=== PATIENT | male | born 1935 | race Caucasian/White ===

== ENCOUNTER 2017-03-10 03:06 | Emergency (ER) | payer MEDICARE, OTHER ==
[2017-03-10 03:17] VITALS: BP 133/77
--- NOTE | 2017-03-10 03:46 | EDM.PDOC ---
ED HPI GI/ABDOMINAL - General Chief Complaint: ENT Problem Stated Complaint: TROUBLE swallowing Time Seen by Provider: 03/10/17 03:14 Source of Information: Reports: Patient, Family (), RN notes reviewed History Limitations: Reports: No limitations - History of Present Illness INITIAL COMMENTS - FREE TEXT/NARRATIVE: The patient states that he ate dinner, consisting of oatmeal and toast, around 16:30, without any problems. He does all his potassium chloride pill, as he usually does, and drink that around that time, as well. Around 21:00, he took his usual nighttime pills, and as he was swallowing them, when he attempts to drink water, he does not vomit, but he does have some regurgitation of liquidy phlegm. The patient states that he has had similar symptoms while eating, over the past 6-7 years. The symptoms usually resolve on their own within about 30 minutes. He states that about 10 days ago he had a similar episode that developed when he was eating dinner at 16:30, and a symptoms that did not resolve themselves until 03:30. The patient states that his last EGD was probably in the . - Related Data Allergies/ADRs: Allergies Allergy/AdvReac Type Severity Reaction Status Date / Time Penicillins Allergy Swelling Verified 03/10/17 03:13 Home Meds: Home Meds Albuterol Sulfate [Albuterol Sulfate HFA] 2 puff IH Q4H PRN 05/09/14 [History] Allopurinol [Zyloprim] 300 mg PO QAM 05/09/14 [History] Arginine [l-Arginine] 500 mg PO QAM 05/09/14 [History] Ascorbic Acid [Vitamin C] 1 tab PO QAM 05/09/14 [History] Atenolol 50 mg PO QAM 05/09/14 [History] Brimonidine [Alphagan P 0.1% Ophth Soln] 1 drop EYEBOTH Q12H 05/09/14 [History] Calcium Carbonate/Vitamin D3 [Calcium 500 + Vit D 200 Tablet] 500 intnl unit PO DAILY 05/09/14 [History] Cholecalciferol (Vitamin D3) [Vitamin D] 1 tab PO QAM 05/09/14 [History] Cinnamon Bark [Cinnamon] 500 mg PO BID 05/09/14 [History] Cyanocobalamin (Vitamin B-12) [Vitamin B-12] 100 mg PO QAM 05/09/14 [History] Cyclobenzaprine [Flexeril] 10 mg PO TID PRN 05/09/14 [History] Flaxseed [Flaxseed Oil] 1 cap PO DAILY 05/09/14 [History] Fluticasone/Salmeterol [Advair 100-50 Diskus] 1 puff INH Q12H 05/09/14 [History] Furosemide [Lasix] 2 tab PO QAM 05/09/14 [History] Furosemide [Lasix] 40 mg PO DAILY 05/09/14 [History] Hydrocodone/Acetaminophen [Hydrocodone-Acetaminophen 5-325] 1 tab PO PRN [History] Krill Oil 300 mg PO DAILY 05/09/14 [History] Lysine [L-Lysine] 500 mg PO BID 05/09/14 [History] Metolazone 0.5 tab PO Q48H 05/09/14 [History] Montelukast [Singulair] 1 tab PO DAILY 05/09/14 [History] Multivitamin [Multiple Vitamins] 1 tab PO QAM 05/09/14 [History] Niacin [Slo-Niacin] 1 tab PO BID 05/09/14 [History] Omeprazole 1 cap PO ACBRK 05/09/14 [History] Potassium Chloride 2 tab PO TID 05/09/14 [History] Psyllium [Metamucil] 1 tbsp PO DAILY 05/09/14 [History] Rosuvastatin Calcium [Crestor] 0.5 mg PO Q48H 05/09/14 [History] Sennosides [Senna] 2 tab PO QAM 05/09/14 [History] Sennosides/Docusate Sodium [Senna-S] 2 tab PO [id number] 05/09/14 [History] Tiotropium [Spiriva] 1 puff INH QAM 05/09/14 [History] Tumeric 1 tab PO QAM 05/09/14 [History] Ubidecarenone [Coenzyme Q10] 1 tab PO QAM 05/09/14 [History] Valsartan [Diovan] 0.5 tab PO BID 05/09/14 [History] traMADol HCl [Ultram] 1 tab PO Q6H PRN 05/09/14 [History] Past Medical History HEENT History: Reports: Impaired vision Other HEENT History: Wears glasses, stop in tear duct Cardiovascular History: Reports: Heart Failure, High cholesterol, Hypertension Respiratory History: Reports: COPD (O2 2L continuously), Sleep apnea (nightly CPAP) Gastrointestinal History: Reports: Colon polyp, Diverticulosis, GERD, PUD Genitourinary History: Reports: BPH, Renal calculus Musculoskeletal History: Reports: Back pain, chronic, Gout, Osteoarthritis Neurological History: Reports: Headaches, chronic Hematologic History: Reports: Anemia - Past Surgical History HEENT Surgical History: Reports: Cataract surgery, Polypectomy GI Surgical History: Reports: Cholecystectomy, Colonoscopy, EGD, Hernia repair/ other (x 3) Neurological Surgical History: Reports: Lumbar spine (x 4) Social & Family History - Tobacco Use Smoking Status *Q: Former Smoker Years of Tobacco use: 35 Packs/Tins Daily: 1.5 Used Tobacco, but Quit: Yes Month Tobacco Last Used: 1988 Second Hand Smoke Exposure: No - Alcohol Use Alcohol Use History: No Days Per Week of Alcohol Use: 0 - Recreational Drug Use Recreational Drug Use: No Drug Use in Last 12 Months: No - Living Situation & Occupation Living situation: Reports: , with spouse Occupation: retired ED ROS GENERAL - Review of Systems Review Of Systems: See Below Constitutional: Reports: no symptoms HEENT: Reports: No symptoms Respiratory: Reports: No Symptoms Cardiovascular: Reports: No symptoms Endocrine: Reports: no symptoms GI/Abdominal: Reports: No symptoms : Reports: no symptoms Musculoskeletal: Reports: no symptoms Skin: Reports: no symptoms Neurological: Reports: No Symptoms Psychiatric: Reports: No symptoms Hematologic/Lymphatic: Reports: no symptoms Immunologic: Reports: no symptoms ED EXAM, GI/ABD - Physical Exam Exam: See Below Exam Limited By: No limitations General Appearance: alert, WD/WN, no apparent distress Eyes: bilateral: normal appearance, EOMI Ears: normal external exam, hearing grossly normal Nose: normal inspection, no blood Throat/Mouth: Normal inspection, Normal lips, Normal voice, No airway compromise Head: atraumatic, normocephalic Neck: normal inspection, full range of motion Respiratory/Chest: no respiratory distress, lungs clear, normal breath sounds, no accessory muscle use Cardiovascular: normal peripheral pulses, regular rate, rhythm, no gallop, no JVD, no murmur, no rub GI/Abdominal: normal bowel sounds, soft, non tender, no organomegaly, no distention, no abnormal bruit, no mass (Male) Exam: Deferred Rectal (Males) Exam: Deferred Back Exam: normal inspection, full range of motion, NT Extremities: normal inspection, normal range of motion, no pedal edema, normal capillary refill Neurological: alert, oriented, normal cognition, no motor/sensory deficits Psychiatric: normal affect Skin Exam: Warm, Dry, Intact, Normal color, No rash Lymphatic: no adenopathy Course - Vital Signs Last Recorded V/S: Last Vital Signs Temp 36.6 C 03/10/17 03:13 Pulse 89 03/10/17 03:13 Resp 18 03/10/17 03:13 BP 133/77 03/10/17 03:13 Pulse Ox 90 L 03/10/17 03:13 - Orders/Labs/Meds Orders: Active Orders 24 hr Category Date Time Status Chest 2V [CR] Stat Exams 03/10/17 03:31 Taken Glucagon,Human Recombinant [GlucaGen] Med 03/10/17 04:01 Once 1 mg IVPUSH ONETIME ONE Medication Orders Glucagon (Glucagen) 1 mg IVPUSH ONETIME ONE Stop: 03/10/17 04:02 Meds: Medications Generic Name Dose Route Start Last Admin Trade Name Mary PRN Reason Stop Dose Admin Glucagon 1 mg 03/10/17 04:01 Glucagen IVPUSH 03/10/17 04:02 ONETIME ONE - Re-Assessments/Exams Free Text/Narrative Re-Assessment/Exam: 03/10/17 04:[address] Lloyd Knutson at 03:57. He would like us to keep the patient in the ED, and she will take the patient to the operating room at 08:00 or 09:00. In the meantime, I will try IV glucagon. 03/10/17 04:10 After returning from radiology, the patient had relief of his symptoms. I had him drink a glass of water, and he is not having any difficulty. I will therefore cancel the glucagon order and discharge the patient home with a referral to Dr. Knutson for outpatient EGD. Departure - Departure Time of Disposition: 04:12 Disposition: Home, Self-Care 01 Condition: good Clinical Impression: Impacted esophageal foreign body Referrals: Carlos Soto MD [Primary Care Provider] - Lloyd Knutson MD [Physician] - Forms: ED Department Discharge Additional Instructions: You were seen in the emergency room for the sensation of pills being stuck in your esophagus. Workup in the ER included a chest x-ray after swallowing barium, which confirmed a lower esophageal obstruction. After you returned from radiology, your symptoms resolved on their own. We recommend that you swallowing your pills one at a time, and make sure that they go down before you swallow the next one. When you eat, take small bites and chew your food well before swallowing. Consider also drinking a sip of water in between swallows. Followup with the Surgeon Dr. Lloyd Knutson at the next available appointment, in order to arrange for an outpatient EGD (scope of your esophagus and stomach). If any other problems, please do not hesitate to return to the ER - My Orders Last 24 Hours: My Active Orders 03/10/17 03:31 Chest 2V [CR] Stat 03/10/17 04:01 Glucagon,Human Recombinant [GlucaGen] 1 mg IVPUSH ONETIME ONE - Assessment/Plan Last 24 Hours: My Active Orders 03/10/17 03:31 Chest 2V [CR] Stat 03/10/17 04:01 Glucagon,Human Recombinant [GlucaGen] 1 mg IVPUSH ONETIME ONE
[2017-03-10] MEDS ORDERED: Glucagon,Human Recombinant 1 MG Vial IVPUSH ONE (04:01)
--- NOTE | 2017-03-10 06:58 | CR ---
Chest: Two views of the chest are obtained. Comparison: No previous chest x-ray. Oral contrast has been given. Small amount of contrast seen within the trachea compatible with aspiration. There is contrast being seen within the stomach. No definite findings of esophageal obstruction are seen. Atelectasis noted within the right lung base which may represent change from aspiration pneumonia. Lungs otherwise are clear. Heart size is normal. Tortuous thoracic aorta is seen. Nodule is identified within the left lung base which is most likely due to to a granuloma. Bony structures are unremarkable for the patient's age. Surgical clips are seen within the upper abdomen. Impression: 1. Contrast within the esophagus with no findings of obstruction. 2. Mild aspiration of contrast is seen. 3. Atelectasis within the right lung base which could possibly represent aspiration pneumonia. 4. Other incidental findings. Diagnostic code #3 MTDD
[2017-03-10] MEDS ORDERED: Barium Sulfate 60% w/v Susp 355 ML Bottle PO ONE (07:04)
== END 2017-03-10 04:24 | disposition home or self-care (01) ==
LOC: JD.ED 03:06
DX: T18.128A Food in esophagus causing other injury, initial encounter (principal); I11.0 Hypertensive heart disease with heart failure; I50.9 Heart failure, unspecified; E78.00 Pure hypercholesterolemia, unspecified; J44.9 Chronic obstructive pulmonary disease, unspecified; K21.9 Gastro-esophageal reflux disease without esophagitis; M19.90 Unspecified osteoarthritis, unspecified site; M10.9 Gout, unspecified; Z88.0 Allergy status to penicillin; Z79.899 Other long term (current) drug therapy; Z86.2 Personal history of diseases of the blood and blood-forming organs and certain disorders involving the immune mechanism; Z98.49 Cataract extraction status, unspecified eye; Z90.49 Acquired absence of other specified parts of digestive tract; Z87.891 Personal history of nicotine dependence
CPT/HCPCS: 71020-26; 74220; 74220-26; 99283; 99284

== ENCOUNTER 2017-03-23 07:23 | Day surgery (SDC) | payer MEDICARE, OTHER ==
[~2017-03-23 07:23] MED LIST: Lactated Ringers 1,000 ML IV SCH; Lidocaine 1%/Sod Bicarbonate in NS 8.4% 1 ML Syringe IV PRN; Sodium Chloride 0.9% 10 ML Syringe FLUSH PRN
[2017-03-23] MEDS ORDERED: Lidocaine 1% 4 ML ONE (07:32)
[2017-03-23] MEDS ORDERED: Propofol 200 MG/20 ML SDV ONE ×2 (07:32→09:34)
--- NOTE | 2017-03-23 07:55 | PCM.PREANE ---
Preanesthetic Assessment - Procedure Proposed Procedure: Egd with Dilation - Anesthesia/Transfusion/Family Hx Anesthesia History: Prior Anesthesia Without Reaction Type of Anesthesia Reaction: Other (see below) (patient often requires o2 after anesthesia for prolonged period, patient on home o2 at 2 lighters ) Family History of Anesthesia Reaction: No Transfusion History: No Prior Transfusion(s) Intubation History: Unknown - Review of Systems General: No Symptoms Pulmonary: Shortness of Breath, Cough Cardiovascular: Dyspnea on Exertion Gastrointestinal: No symptoms Neurological: No Symptoms Other: Reports: None - Physical Assessment NPO Status Date: 03/23/17 NPO Status Time: 17:30 Pulse: 65 O2 Sat by Pulse Oximetry: 97 Respiratory Rate: 16 Blood Pressure: 131/62 Temperature: 97 C Height: 1.83 m Weight: 117.934 kg ASA Class: 3 Mental Status: Alert & Oriented x3 Dentition: Reports: Normal Dentition Thyro-Mental Finger Breadths: 3 Mouth Opening Finger Breadths: 5 ROM/Head Extension: Full (with stiffness) Lungs: Normal respiratory effort, Wheezing Cardiovascular: Regular Rhythm, Bradycardia - Imaging/EKG Impressions: EKG 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 - Allergies Allergies/Adverse Reactions: Allergies Allergy/AdvReac Type Severity Reaction Status Date / Time gabapentin Allergy itchy eyes Verified 03/22/17 15:03 Penicillins Allergy Swelling Verified 03/22/17 15:03 - Blood Blood Available: No - Anesthesia Plan Free Text/Narrative:: Albuterol Inhaler ordered preop Pre-Op Medication Ordered: Beta Marjorie (took at home this am ) Beta Marjorie: Other Med Last Dose Date: 03/23/17 Med Last Dose Time: 06:30 - Acknowledgements Anesthesia Type Planned: MAC Pt an Appropriate Candidate for the Planned Anesthesia: Yes Alternatives and Risks of Anesthesia Discussed w Pt/Guardian: Yes Pt/Guardian Understands and Agrees with Anesthesia Plan: Yes PreAnesthesia Questionnaire HEENT History: Reports: Impaired vision Other HEENT History: Wears glasses, stop in tear duct Cardiovascular History: Reports: Heart Failure, High cholesterol, Hypertension Respiratory History: Reports: COPD, Sleep apnea Other Respiratory History: chronic o2 use at 2 L Gastrointestinal History: Reports: Colon polyp, Diverticulosis, GERD, PUD, Other (see below) Other Gastrointestinal History: dysphagia Genitourinary History: Reports: BPH, Renal calculus [employer] History: Reports: None Musculoskeletal History: Reports: Back pain, chronic, Gout, Osteoarthritis Neurological History: Reports: Headaches, chronic Psychiatric History: Reports: None Endocrine/Metabolic History: Reports: None Hematologic History: Reports: Anemia Other Hematologic History: multiple myeloma Immunologic History: Reports: None Oncologic (Cancer) History: Reports: Other (see below) Other Oncologic History: multiple myeloma Dermatologic History: Reports: None - Past Surgical History Head Surgeries/Procedures: Reports: None HEENT Surgical History: Reports: Cataract surgery, Polypectomy GI Surgical History: Reports: Cholecystectomy, Colonoscopy, EGD, Hernia repair/ other Neurological Surgical History: Reports: Lumbar spine Musculoskeletal Surgical History: Reports: Other (see below) Other Musculoskeletal Surgeries/Procedures:: spine surgery x 4 - SUBSTANCE USE Smoking Status *Q: Former Smoker Tobacco Use Within Last Twelve Months: No Second Hand Smoke Exposure: No Days Per Week of Alcohol Use: 0 Recreational Drug Use History: No - HOME MEDS Home Medications: Home Meds Albuterol Sulfate [Proair Hfa] 1 - 2 puff INH Q4H PRN 03/22/17 [History] Allopurinol [Zyloprim] 300 mg PO DAILY 03/22/17 [History] Aloe Vera/Sodium Chloride [[place] Saline Nasal Gel] 1 applic NASBOTH BID 03/22/17 [ History] Aspirin [[place] Aspirin] 81 mg PO DAILY 03/22/17 [History] Atenolol 50 mg PO DAILY 03/22/17 [History] Brimonidine [Alphagan P 0.15% Ophth Soln] 1 drop EYEBOTH BID 03/22/17 [History] Cyclobenzaprine [Flexeril] 10 mg PO TID PRN 03/22/17 [History] Ferrous Sulfate 325 mg PO Q48H 03/22/17 [History] Finasteride 5 mg PO DAILY 03/22/17 [History] Fluticasone/Salmeterol [Advair 250-50 Diskus] 2 puff INH BID 03/22/17 [History] Furosemide [Furosemide] 80 mg PO BID 03/22/17 [History] Krill/Om-3/DHA/EPA/Phospho/Ast [Krill Oil 1,000 mg Softgel] 1 cap PO Q48H [History] Lactobacillus Combination No.4 [Probiotic] 1 cap PO DAILY 03/22/17 [History] Magnesium Oxide 250 mg PO BEDTIME 03/22/17 [History] Metolazone [Zaroxolyn] 10 mg PO Q48H 03/22/17 [History] Montelukast [Singulair] 10 mg PO BEDTIME 03/22/17 [History] Multivitamin [Multivitamins] 1 tab PO DAILY 03/22/17 [History] Omeprazole Magnesium [Prilosec Otc] 20 mg PO DAILY 03/22/17 [History] Potassium Chloride 80 meq PO TID 03/22/17 [History] Pramipexole Di-HCl [Mirapex] 0.25 mg PO BEDTIME 03/22/17 [History] Rosuvastatin [Crestor] 10 mg PO DAILY 03/22/17 [History] Sennosides [Senna] 8.6 mg PO DAILY 03/22/17 [History] Tamsulosin HCl [Tamsulosin HCl] 0.4 mg PO BID 03/22/17 [History] Tiotropium [Spiriva Handihaler] 1 puff INH DAILY 03/22/17 [History] Ubidecarenone [Coq-10] 100 mg PO DAILY 03/22/17 [History] Valsartan [Diovan] 80 mg PO BID 03/22/17 [History] predniSONE [Prednisone] 5 mg PO DAILY 03/22/17 [History] traMADol [Ultram] 50 mg PO Q6H PRN 03/22/17 [History] - CURRENT (IN HOUSE) MEDS Current Meds: Current Medications Lactated Ringer's (Ringers, Lactated) 1,000 mls @ 125 mls/hr IV ASDIRECTED MEDHAT Stop: 03/23/17 23:00 Lidocaine/Sodium Bicarbonate (Buffered Lidocaine 1% In Ns 8.4%) 0.25 ml IV ONETIME PRN PRN Reason: Prior to IV Start Stop: 03/23/17 18:00 Sodium Chloride (Saline Flush) 10 ml FLUSH ASDIRECTED PRN PRN Reason: Keep Vein Open Stop: 03/23/17 18:00 Discontinued Medications Lidocaine HCl (Xylocaine-Mpf 1%) Confirm Administered Dose 4 mls @ as directed .ROUTE .STK-MED ONE Stop: 03/23/17 07:33 Propofol (Diprivan 20 Ml) Confirm Administered Dose 200 mg .ROUTE .STK-MED ONE Stop: 03/23/17 07:33
[2017-03-23] MEDS ORDERED: Albuterol 0.021% 0.63 MG/3 ML Neb Soln NEB ONE (08:11)
[2017-03-23] MEDS ORDERED: Albuterol 0.083% 2.5 MG/3 ML Neb Soln ONE (08:20)
[2017-03-23] MEDS ORDERED: Albuterol 0.083% 2.5 MG/3 ML Neb Soln NEB ONE (08:30)
--- NOTE | 2017-03-23 09:31 | PCM.OPNOTE ---
- General Post-Op/Procedure Note Date of Surgery/Procedure: 03/23/17 Operative Procedure(s): EGD with bx Pre Op Diagnosis: dysphagia Post-Op Diagnosis: Same Anesthesia Technique: MAC Primary Surgeon: Lloyd Knutson EBL in mLs: 0 Complications: None Condition: Good
--- NOTE | 2017-03-23 09:34 | PCM48HPAN ---
Post Anesthesia Note - EVALUATION WITHIN 48HRS OF ANESTHETIC Vital Signs in Normal Range: Yes Patient Participated in Evaluation: Yes Respiratory Function Stable: Yes Airway Patent: Yes Cardiovascular Function Stable: Yes Hydration Status Stable: Yes Pain Control Satisfactory: Yes Nausea and Vomiting Control Satisfactory: Yes Mental Status Recovered: Yes
[2017-03-23] MEDS ORDERED: Citric Acid/Simethicone/Sodium Bicarbonate Granules 4 GM Packet PO ONE (09:44)
[2017-03-23] MEDS ORDERED: Barium Sulfate 98% Powder for Susp 340 GM Bottle PO ONE (09:44)
[2017-03-23] MEDS ORDERED: Barium Sulfate 60% w/v Susp 355 ML Bottle PO ONE (09:44)
--- NOTE | 2017-03-23 10:21 | CR ---
Esophagram Esophagram study performed utilizing both air and single contrast technique. Findings: Mild narrowing of the distal esophagus is seen. Narrowing is less than 1 cm with 1 cm barium tablet passing readily into the stomach. Tertiary contractions are seen. No stricture or mass effect is otherwise seen within the esophagus. Impression: 1. Mild area of narrowing within the distal esophagus. This causes no significant obstruction into the stomach. 1 cm barium tablet passed readily through this area. Narrowing most likely due to mild achalasia. 2. Tertiary contractions compatible with presbyesophagus. 3. No additional abnormality is appreciated. Diagnostic code #3
[2017-03-23 10:43] VITALS: BP 135/77
--- NOTE | 2017-03-23 15:00 | OR ---
DATE OF OPERATION: 03/23/2017 SURGEON: Lloyd Knutson MD PREOPERATIVE DIAGNOSIS: Dysphagia. POSTOPERATIVE DIAGNOSIS: Dysphagia. OPERATION PERFORMED: Esophagogastroduodenoscopy with biopsy. FINDINGS: Inflammation in the duodenum, which was biopsied. Some edema in the antrum, body, and cardia of the stomach with some dilated veins, and this area was biopsied. The GE junction was at about 42 cm and did not show any erosions. The rest of the esophagus was widely patent. There was no definite dilatation of the veins noted. ANESTHESIA: Procedure done under IV sedation. DESCRIPTION OF PROCEDURE: The patient was taken to the operating room, placed in a supine position, connected to monitoring equipment, and given IV sedation. He was placed in left lateral side with a bite block and video Olympus gastroscope placed in the posterior oropharynx, under direct vision, threaded past the cricopharyngeus, down the esophagus, and into the stomach. The stomach was insufflated. The scope was passed through the pylorus and second portion of the duodenum. Second portion of the duodenum was unremarkable. The duodenal bulb showed some erythema, which was biopsied. Pyloric channel was normal. Antrum showed some petechiae and dilated veins. The mucosa was biopsied. J-maneuver showed some dilated veins around the cardia and prominent rugal folds. Scope withdrawn in the GE junction, which was unremarkable. Small sliding hiatal hernia noted, the GE junction about 42 cm. Rest of the esophagus was viewed as scope was withdrawn and was unremarkable. The patient tolerated the procedure and sent to recovery room in a stable condition. Specimen sent to pathology in a labeled container. The patient will be followed up in the clinic. ESTIMATED BLOOD LOSS: MMODAL /[id number]
== END 2017-03-23 10:25 | disposition home or self-care (01) ==
LOC: JD.SDS 07:23
PROVIDERS: ATTEND Surgery
DX: K29.50 Unspecified chronic gastritis without bleeding (principal); K29.80 Duodenitis without bleeding; Z88.0 Allergy status to penicillin; Z88.8 Allergy status to other drugs, medicaments and biological substances; K44.9 Diaphragmatic hernia without obstruction or gangrene; J44.9 Chronic obstructive pulmonary disease, unspecified; Z90.49 Acquired absence of other specified parts of digestive tract; Z98.890 Other specified postprocedural states; Z79.899 Other long term (current) drug therapy; Z79.82 Long term (current) use of aspirin; Z87.891 Personal history of nicotine dependence
CPT/HCPCS: 43239; 74220; 88305; 94664; J7120; J2704

== ENCOUNTER 2017-06-11 21:39 | Emergency (ER) | payer MEDICARE, OTHER ==
[2017-06-11 21:49] VITALS: BP 153/79
--- NOTE | 2017-06-11 22:03 | EDM.PDOC ---
ED HPI GENERAL MEDICAL PROBLEM - General Chief Complaint: Gastrointestinal Problem Stated Complaint: UNABLE TO GO TO THE BATHROOM Time Seen by Provider: 06/11/17 21:58 Source of Information: Reports: Patient, Family (spouse) History Limitations: Reports: No Limitations - History of Present Illness INITIAL COMMENTS - FREE TEXT/NARRATIVE: 81-year-old male presents the ED with abdominal bloating discomfort and mild rectal pressure discomfort. He states he has a history of chronic constipation and has not had a bowel movement for last 2 and half days. Is in spite of taking vegetable oil laxatives 2 tabs twice daily Metamucil twice daily and fiber med twice daily. He has a history of chronic constipation since having 4 back surgeries. In the first part of April he was diagnosed with multiple myeloma and therefore has started chemotherapy. He states as soon as he started high-dose steroids he developed increasing problems with constipation. At present he doesn't have much in the way of abdominal cramps. No rectal bleeding. No nausea or vomiting. Still able to eat 3 meals a day. Onset: Gradual Onset Date: 06/08/17 Duration: Day(s):, Getting Worse Location: Reports: Other (No bowel movement for the last 2 and half days.) Quality: Reports: Pressure, Same as Previous Episode Severity: Mild Worsens with: Reports: None Context: Reports: Other (Has developed increased problems with bowel movements since starting chemotherapy for multiple myeloma in the last 6 weeks). 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 below) (None.) - Related Data Allergies Allergy/AdvReac Type Severity Reaction Status Date / Time gabapentin Allergy itchy eyes Verified 06/11/17 21:48 Penicillins Allergy Swelling Verified 06/11/17 21:48 Home Meds: Home Meds Albuterol Sulfate [Proair Hfa] 1 - 2 puff INH Q4H PRN 03/22/17 [History] Allopurinol [Zyloprim] 300 mg PO DAILY 03/22/17 [History] Aspirin [[place] Aspirin] 81 mg PO DAILY 03/22/17 [History] Atenolol 50 mg PO DAILY 03/22/17 [History] Brimonidine [Alphagan P 0.15% Ophth Soln] 1 drop EYEBOTH BID 03/22/17 [History] Cyclobenzaprine [Flexeril] 10 mg PO TID PRN 03/22/17 [History] Finasteride 5 mg PO DAILY 03/22/17 [History] Fluticasone/Salmeterol [Advair 250-50 Diskus] 2 puff INH BID 03/22/17 [History] Furosemide [Furosemide] 80 mg PO BID 03/22/17 [History] Krill/Om-3/DHA/EPA/Phospho/Ast [Krill Oil 1,000 mg Softgel] 1 cap PO Q48H [History] Lactobacillus Combination No.4 [Probiotic] 1 cap PO DAILY 03/22/17 [History] Magnesium Oxide 250 mg PO BEDTIME 03/22/17 [History] Metolazone [Zaroxolyn] 2.5 mg PO Q48H 03/22/17 [History] Multivitamin [Multivitamins] 1 tab PO DAILY 03/22/17 [History] Omeprazole Magnesium [Prilosec Otc] 20 mg PO DAILY 03/22/17 [History] Potassium Chloride 60 meq PO TID 03/22/17 [History] Pramipexole Di-HCl [Mirapex] 0.25 mg PO BEDTIME 03/22/17 [History] Rosuvastatin [Crestor] 5 mg PO ASDIRECTED 03/22/17 [History] Sennosides [Senna] 8.6 mg PO DAILY 03/22/17 [History] Tamsulosin HCl [Tamsulosin HCl] 0.4 mg PO BID 03/22/17 [History] Tiotropium [Spiriva Handihaler] 1 puff INH DAILY 03/22/17 [History] Ubidecarenone [Coq-10] 100 mg PO DAILY 03/22/17 [History] Valsartan [Diovan] 80 mg PO BID 03/22/17 [History] predniSONE [Prednisone] 5 mg PO DAILY 03/22/17 [History] traMADol [Ultram] 50 mg PO Q6H PRN 03/22/17 [History] Calcium Carbonate/Vitamin D3 [Calcium 500 + Vit D 400] 1 each PO DAILY 06/11/17 [History] Dexamethasone 4 mg PO DAILY 06/11/17 [History] Gabapentin [Neurontin] 300 mg PO DAILY 06/11/17 [History] Lenalidomide [Revlimid] 25 mg PO DAILY 06/11/17 [History] Loratadine [Claritin] 10 mg PO ASDIRECTED 06/11/17 [History] Montelukast Sodium [Singulair] 5 mg PO DAILY 06/11/17 [History] Polyethylene Glycol 3350 [MiraLAX] 17 gm PO BID #1 cont 06/11/17 [Rx] Past Medical History HEENT History: Reports: Impaired Vision Other HEENT History: Wears glasses, stop in tear duct Cardiovascular History: Reports: Heart Failure, High Cholesterol, Hypertension Respiratory History: Reports: COPD, Sleep Apnea Other Respiratory History: chronic o2 use at 2 L Gastrointestinal History: Reports: Colon Polyp, Diverticulosis, GERD, PUD, Other (See Below) Other Gastrointestinal History: dysphagia Genitourinary History: Reports: BPH, Renal Calculus 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 Is currently receiving chemotherapy for this. Dermatologic History: Reports: None - Past Surgical History HEENT Surgical History: Reports: Cataract Surgery, Polypectomy GI Surgical History: Reports: Cholecystectomy, Colonoscopy, EGD, Hernia Repair/ Other Neurological Surgical History: Reports: Lumbar Spine Musculoskeletal Surgical History: Reports: Other (See Below) Other Musculoskeletal Surgeries/Procedures:: four back surgeries Oncologic Surgical History: Reports: Bone Marrow Aspiration Social & Family History - Tobacco Use Smoking Status *Q: Former Smoker Years of Tobacco use: 35 Packs/Tins Daily: 1.5 Used Tobacco, but Quit: Yes Month Tobacco Last Used: 1988 Second Hand Smoke Exposure: No - Caffeine Use Caffeine Use: Reports: Coffee, Tea - Alcohol Use Days Per Week of Alcohol Use: 0 - Recreational Drug Use Recreational Drug Use: No Drug Use in Last 12 Months: No - Living Situation & Occupation Living situation: Reports: , with Spouse Occupation: Retired ED ROS GENERAL - Review of Systems Review Of Systems: See Below Constitutional: Reports: Malaise, Weakness, Fatigue, Decreased Appetite (Mildly. ). Denies: Fever, Chills, Weight Loss HEENT: Reports: Glasses (Is not wearing his hearing aids at present.), Hearing Loss Respiratory: Reports: Shortness of Breath. Denies: Wheezing, Cough, Sputum, Hemoptysis, Other Cardiovascular: Reports: Blood Pressure Problem, Dyspnea on Exertion (Both lower legs chronically), Edema. Denies: Chest Pain, Claudication, Lightheadedness, Orthopnea (Usually has high blood pressure), Palpitations, PND Endocrine: Reports: Fatigue GI/Abdominal: Reports: Abdominal Pain (Morbid abdominal pressure discomfort feels bloated. No cramping), Constipation, Decreased Appetite, Flatus. Denies: Hematemesis, Hematochezia, Melena, Mucous in Stool, Nausea, Stool Incontinence, Vomiting, Other : Reports: Frequency, Other (Has benign prostatic hypertrophy.) Musculoskeletal: Reports: Back Pain (Chronically) Skin: Reports: Other Neurological: Reports: No Symptoms Psychiatric: Reports: No Symptoms Hematologic/Lymphatic: Reports: No Symptoms Immunologic: Reports: No Symptoms ED EXAM, GI/ABD - Physical Exam Exam: See Below Exam Limited By: No Limitations General Appearance: Alert, WD/WN, No Apparent Distress, Other (He is very hard of hearing. Have to speak quite loudly and he looks to his to interpret me) Eyes: Bilateral: Normal Appearance Head: Atraumatic, Normocephalic Neck: Normal Inspection, Supple, Non-Tender, Full Range of Motion. No: Carotid Bruit, Lymphadenopathy (L), Lymphadenopathy (R) Respiratory/Chest: No Respiratory Distress, Lungs Clear, Normal Breath Sounds ( Mildly decreased in both bases posteriorly.), Chest Non-Tender, Decreased Breath Sounds Cardiovascular: Regular Rate, Rhythm, No Gallop, No Murmur, No Rub. No: No Edema GI/Abdominal: Normal Bowel Sounds, Non-Tender, Tympanic Bowel Sounds (Mild tympany upper abdomen.), Other (Abdomen is firm to palpation. He is obese making it difficult to palpate solid organs. He's had multiple surgeries for umbilical hernia wrapping. Still has a small umbilical hernia present. Indicates mesh graft is present across his abdomen.) (Male) Exam: No Hernia Back Exam: Normal Inspection, Full Range of Motion, Other (Midline lumbar surgical scar evident.) Extremities: Other (Venous stasis dermatitis both lower extremities. 2+ pitting edema to mid tib-fib bilaterally.) Neurological: Alert, Oriented, CN II-XII Intact, Normal Cognition Psychiatric: Normal Affect, Normal Mood Skin Exam: Warm, Dry, Intact, Other (Bilateral venous stasis dermatitis in lower extremities to distal tib-fib.) Course - Vital Signs Last Recorded V/S: Last Vital Signs Temp 36.5 C 06/11/17 21:46 Pulse 76 06/11/17 21:46 Resp 18 06/11/17 21:46 BP 153/79 H 06/11/17 21:46 Pulse Ox 96 06/11/17 21:46 - Orders/Labs/Meds Orders: Active Orders 24 hr Category Date Time Status Enema [RC] ASDIRECTED Care 06/11/17 22:13 Active Abdomen 1V Flat [CR] Stat Exams 06/11/17 21:58 Taken Meds: Medications Discontinued Medications Generic Name Dose Route Start Last Admin Trade Name Mary PRN Reason Stop Dose Admin Magnesium Citrate 300 ml 06/11/17 22:13 06/11/17 22:51 Citrate Of Magnesia PO 06/11/17 22:14 300 ml ONETIME ONE Administration - Radiology Interpretation Free Text/Narrative:: 81-year-old male presents to the ED with no bowel movement for last 2-1/2 days. Feels distended in his abdomen in spite of taking a large amount of laxatives daily. His constipation problem is worsened since started chemotherapy for multiple myeloma for the last few weeks. Decreased since starting steroids. I believe this was dexamethasone. Benign abdominal examination and is in no significant discomfort. Plan :KUB will be performed to establish the extent of the constipation. - Re-Assessments/Exams Free Text/Narrative Re-Assessment/Exam: 06/11/17 22:12 KUB reveals essentially left hemicolon constipation. There is very little stool on the right side of the hemicolon and mid transverse colon. He is already tried several suppositories and Fleet enema today. Minimal results. Will try a soapsuds enema here. And also oral magnesium citrate 10 ounces by mouth. 06/11/17 23:06 patient did have a fair amount of diarrhea water return with some formed elements. He feels somewhat better. Still going to give him the 10 ounces of Citroma orally. Advised him to switch over to MiraLAX 17 g twice daily while he is on the chemotherapy and stop the Metamucil. I think this will be more successful in controlling the constipation problems long-term. Departure - Departure Time of Disposition: 23:07 Disposition: Home, Self-Care 01 Condition: Fair Clinical Impression: Constipation by delayed colonic transit - Discharge Information Prescriptions: Polyethylene Glycol 3350 [MiraLAX] 17 gm PO BID #1 cont Instructions: Constipation, Adult Referrals: Carlos Soto MD [Primary Care Provider] - Forms: ED Department Discharge Additional Instructions: Evaluation in the emergency room tonight in regards to abdominal bloating and no bowel movement for the last 2 and half to 3 days. Chronic constipation issues worsened by recent chemotherapy x-ray of the abdomen did reveal extensive stool throughout the left hemicolon. The rectal vault itself was fairly empty. You're therefore given a soapsuds enema which produced a lot of dark brown water suggesting some stool release or softening. You're also given Citroma 10 ounces by mouth which will work overnight to hopefully get her bowels moving again. I would suggest stopping the Metamucil and switching to MiraLAX powder 17 g scoop twice daily well on the chemotherapy as I feel this will be more successful in controlling her constipation long-term. Noted takes 3 days for the MiraLAX to start to work well. Turned to the hospital for any further problems occur over the weekend. - My Orders Last 24 Hours: My Active Orders 06/11/17 21:58 Abdomen 1V Flat [CR] Stat 06/11/17 22:13 Enema [RC] ASDIRECTED - Assessment/Plan Last 24 Hours: My Active Orders 06/11/17 21:58 Abdomen 1V Flat [CR] Stat 06/11/17 22:13 Enema [RC] ASDIRECTED
[2017-06-11] MEDS ORDERED: Magnesium Citrate Solution 296 ML Bottle PO ONE (22:13)
--- NOTE | 2017-06-13 11:22 | CR ---
Abdomen: Supine view of the abdomen was obtained. Comparison: No previous abdominal x-ray. Surgical clips are noted from prior cholecystectomy. Mild vascular calcification is seen. Scoliosis and degenerative change is present within the spine. Bowel gas pattern appears within normal limits. Bony structures are somewhat osteopenic. Impression: 1. Incidental findings. Nothing acute is identified. Diagnostic code #2
== END 2017-06-11 23:30 | disposition home or self-care (01) ==
LOC: JD.ED 21:39
DX: K59.01 Slow transit constipation (principal); I11.0 Hypertensive heart disease with heart failure; I50.9 Heart failure, unspecified; G47.30 Sleep apnea, unspecified; J44.9 Chronic obstructive pulmonary disease, unspecified; K21.9 Gastro-esophageal reflux disease without esophagitis; Z90.49 Acquired absence of other specified parts of digestive tract; Z98.49 Cataract extraction status, unspecified eye; Z98.890 Other specified postprocedural states; Z87.891 Personal history of nicotine dependence; Z79.82 Long term (current) use of aspirin; Z79.899 Other long term (current) drug therapy; Z88.0 Allergy status to penicillin; Z88.8 Allergy status to other drugs, medicaments and biological substances
CPT/HCPCS: 74000; 99283; A9270

== ENCOUNTER 2018-02-04 08:34 | Emergency (ER) | payer OTHER, MEDICARE ==
[2018-02-04 08:44] VITALS: BP 114/64
--- NOTE | 2018-02-04 08:52 | EDM.PDOC ---
ED HPI GENERAL MEDICAL PROBLEM - General Chief Complaint: ENT Problem Stated Complaint: NOSE BLEED Time Seen by Provider: 02/04/18 08:52 Source of Information: Reports: Patient History Limitations: Reports: No Limitations - History of Present Illness INITIAL COMMENTS - FREE TEXT/NARRATIVE: 82-year-old male presents to the ED with an acute onset of left nasal hemorrhage starting about 0730 hrs. this morning. He's had no problems with nosebleeds as of late. Is on a baby aspirin daily. Apparently he is receiving chemotherapy as well for multiple myeloma since April 29 last year. Denies any nasal trauma in the last several days. He has blown out several clots in the nose has slowed up in terms of bleeding at this time. It was running down his throat and out the other side of his nares as well. Onset: Today Onset Date: 02/04/18 Onset Time: 07:30 Duration: Hour(s): Location: Reports: Face (Left nasal hemorrhage.) Quality: Reports: Other Severity: Moderate (No pain) Improves with: Reports: None Context: Reports: Other. 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 below) (None.) - Related Data Allergies Allergy/AdvReac Type Severity Reaction Status Date / Time gabapentin Allergy itchy eyes Verified 06/11/17 21:48 Penicillins Allergy Swelling Verified 06/11/17 21:48 Home Meds: Home Meds Albuterol Sulfate [Proair Hfa] 1 - 2 puff INH Q4H PRN 03/22/17 [History] Allopurinol [Zyloprim] 300 mg PO DAILY 03/22/17 [History] Aspirin [[place] Aspirin] 81 mg PO DAILY 03/22/17 [History] Atenolol 50 mg PO DAILY 03/22/17 [History] Brimonidine [Alphagan P 0.15% Ophth Soln] 1 drop EYEBOTH BID 03/22/17 [History] Cyclobenzaprine [Flexeril] 10 mg PO TID PRN 03/22/17 [History] Finasteride 5 mg PO DAILY 03/22/17 [History] Fluticasone/Salmeterol [Advair 250-50 Diskus] 2 puff INH BID 03/22/17 [History] Furosemide [Furosemide] 80 mg PO BID 03/22/17 [History] Krill/Om-3/DHA/EPA/Phospho/Ast [Krill Oil 1,000 mg Softgel] 1 cap PO Q48H [History] Lactobacillus Combination No.4 [Probiotic] 1 cap PO DAILY 03/22/17 [History] Magnesium Oxide 250 mg PO BEDTIME 03/22/17 [History] Metolazone [Zaroxolyn] 2.5 mg PO Q48H 03/22/17 [History] Multivitamin [Multivitamins] 1 tab PO DAILY 03/22/17 [History] Omeprazole Magnesium [Prilosec Otc] 20 mg PO DAILY 03/22/17 [History] Potassium Chloride 60 meq PO TID 03/22/17 [History] Pramipexole Di-HCl [Mirapex] 0.25 mg PO BEDTIME 03/22/17 [History] Rosuvastatin [Crestor] 5 mg PO ASDIRECTED 03/22/17 [History] Sennosides [Senna] 8.6 mg PO DAILY 03/22/17 [History] Tamsulosin HCl [Tamsulosin HCl] 0.4 mg PO BID 03/22/17 [History] Tiotropium [Spiriva Handihaler] 1 puff INH DAILY 03/22/17 [History] Ubidecarenone [Coq-10] 100 mg PO DAILY 03/22/17 [History] Valsartan [Diovan] 80 mg PO BID 03/22/17 [History] predniSONE [Prednisone] 5 mg PO DAILY 03/22/17 [History] traMADol [Ultram] 50 mg PO Q6H PRN 03/22/17 [History] Calcium Carbonate/Vitamin D3 [Calcium 500 + Vit D 400] 1 each PO DAILY 06/11/17 [History] Dexamethasone 4 mg PO DAILY 06/11/17 [History] Gabapentin [Neurontin] 300 mg PO DAILY 06/11/17 [History] Lenalidomide [Revlimid] 25 mg PO DAILY 06/11/17 [History] Loratadine [Claritin] 10 mg PO ASDIRECTED 06/11/17 [History] Montelukast Sodium [Singulair] 5 mg PO DAILY 06/11/17 [History] Polyethylene Glycol 3350 [MiraLAX] 17 gm PO BID #1 cont 06/11/17 [Rx] Bacitracin/Polymyxin B [Polysporin Oint] 28.35 gm .XX DAILY #1 tube 02/04/18 [Rx ] Past Medical History HEENT History: Reports: Impaired Vision Other HEENT History: Wears glasses, stop in tear duct Cardiovascular History: Reports: Heart Failure, High Cholesterol, Hypertension Respiratory History: Reports: COPD, Sleep Apnea Other Respiratory History: chronic o2 use at 2 L Gastrointestinal History: Reports: Colon Polyp, Diverticulosis, GERD, PUD, Other (See Below) Other Gastrointestinal History: dysphagia Genitourinary History: Reports: BPH, Renal Calculus 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 Is currently receiving chemotherapy for this. Dermatologic History: Reports: None - Past Surgical History HEENT Surgical History: Reports: Cataract Surgery, Polypectomy GI Surgical History: Reports: Cholecystectomy, Colonoscopy, EGD, Hernia Repair/ Other Neurological Surgical History: Reports: Lumbar Spine Musculoskeletal Surgical History: Reports: Other (See Below) Other Musculoskeletal Surgeries/Procedures:: four back surgeries Oncologic Surgical History: Reports: Bone Marrow Aspiration Social & Family History - Tobacco Use Smoking Status *Q: Former Smoker Years of Tobacco use: 35 Packs/Tins Daily: 1.5 Used Tobacco, but Quit: Yes Month Tobacco Last Used: 1988 Second Hand Smoke Exposure: No - Caffeine Use Caffeine Use: Reports: Coffee, Tea - Alcohol Use Days Per Week of Alcohol Use: 0 - Recreational Drug Use Recreational Drug Use: No Drug Use in Last 12 Months: No - Living Situation & Occupation Living situation: Reports: , with Spouse Occupation: Retired ED ROS ENT - Review of Systems Review Of Systems: See Below Constitutional: Reports: Malaise, Weakness, Fatigue. Denies: Fever, Chills, Weight Loss HEENT: Reports: Nosebleed Respiratory: Reports: Shortness of Breath (Left nasal hemorrhage see history of present illness) Cardiovascular: Reports: No Symptoms Endocrine: Reports: No Symptoms GI/Abdominal: Reports: No Symptoms : Reports: Frequency (Nocturia 3.), Other Musculoskeletal: Reports: Back Pain Skin: Reports: Pallor Neurological: Reports: No Symptoms Psychiatric: Reports: No Symptoms Hematologic/Lymphatic: Reports: No Symptoms ED EXAM, ENT - Physical Exam Exam: See Below Exam Limited By: No Limitations General Appearance: Alert, WD/WN, Anxious, Mild Distress Eye Exam: Bilateral Eye: Normal Inspection Nose: Other (On inspection of the nares the right nares appears to be clear. There is a large amount of clot and the oropharynx is coated with clots on the buccal mucosa and posterior oropharynx. On inspection of the left naris appears to be bleeding from the posterior) Mouth/Throat: Other (As above or fractures coated with blood with a thick maroon clot hanging down from the nasopharynx) Head: Atraumatic, Normocephalic Neck: Normal Inspection, Supple, Non-Tender, Full Range of Motion. No: Lymphadenopathy (L), Lymphadenopathy (R) Respiratory/Chest: Respiratory Distress (Mild tachypnea at rest. ), Decreased Breath Sounds (Decreased air entry lower lung rey posteriorly) Cardiovascular: Regular Rate, Rhythm, No Edema, No Gallop Extremities: Normal Inspection, Normal Range of Motion, Non-Tender, No Pedal Edema Neurological: Alert, Oriented, CN II-XII Intact, Normal Cognition Psychiatric: Normal Affect, Normal Mood Skin: Warm, Dry, Intact, Normal Color, No Rash Course - Vital Signs Last Recorded V/S: Last Vital Signs Temp 36.2 C 02/04/18 08:41 Pulse 72 02/04/18 08:41 Resp 20 02/04/18 08:41 BP 114/64 02/04/18 08:41 Pulse Ox 93 L 02/04/18 08:41 - Orders/Labs/Meds Meds: Medications Discontinued Medications Generic Name Dose Route Start Last Admin Trade Name Freq PRN Reason Stop Dose Admin Cocaine HCl 4 ml 02/04/18 09:18 02/04/18 09:27 Cocaine Hcl TOP 02/04/18 09:19 4 ml ONETIME ONE Administration Oxymetazoline HCl 15 ml 02/04/18 09:18 02/04/18 09:27 Afrin Original 0.05% Nasal [place] DELFINA 02/04/18 09:19 1 spray ONETIME ONE Administration - Radiology Interpretation Free Text/Narrative:: 82-year-old male presents the ED with acute left-sided nosebleed. Started about 0730 hrs. this morning shortly after he got up. This persisted since that time. Of note the patient is receiving chemotherapy for multiple myeloma. He's had no previous similar problems with nose bleeding. Initial inspection does not show the site of bleeding per se. Appears to be almost posterior lateral. There is a large amount of blood in the posterior pharynx however. Plan I'm going to pack his left naris with combination of cocaine Afrin-soaked nasal pack. I will leave this there for 20 minutes and then remove it and have a better look at his nose. - Re-Assessments/Exams Free Text/Narrative Re-Assessment/Exam: 02/04/18 09:32: Left naris packed with 1/2 inch tube gauze soaked in Afrin and 4 mils of cocaine. Nasal pack placed. This will stay for 20 minutes and then I will remove it and see if we can identify source of bleeding for possible cauterization. 02/04/18 10:00: Packing removed from the left naris. Minimal blood noted on the posterior aspect of the pack. An area of suspect bleeding was appreciated from the left lateral nasal alar wall. Not from the septum this area was cauterized with silver nitrate in 2 spots. I will review him in 10 minutes time. Departure - Departure Time of Disposition: :18 Disposition: Home, Self-Care 01 Condition: Fair Clinical Impression: Epistaxis - Discharge Information Prescriptions: Bacitracin/Polymyxin B [Polysporin Oint] 28.35 gm .XX DAILY #1 tube Referrals: Carlos Soto MD [Primary Care Provider] - Forms: ED Department Discharge Additional Instructions: Evaluation the emergency room this morning in regards to development of sudden left-sided nosebleed this morning. Bleeding appears to be coming from the mid nose on the outside alae. Nose is packed with Afrin and cocaine to bring the bleeding under control and then the area was cauterized with silver nitrate . No acute of the snuffles for the next hour or so as this is a side effect of the silver nitrate. Am of this discharge may be pinkish in color as there is some blood still in the floor of the nose. Of course return to the ED if you have any further significant nose bleeding. Suggest treatment at bedtime with Polysporin ointment to both the nasal septum and the outside of the nose placed by Q-tip every night at bedtime for one week.
[2018-02-04] MEDS ORDERED: Oxymetazoline 0.05% Nasal Spray 15 ML Bottle NAS ONE (09:18)
== END 2018-02-04 10:30 | disposition home or self-care (01) ==
LOC: JD.ED 08:34
DX: R04.0 Epistaxis (principal); C90.00 Multiple myeloma not having achieved remission; K21.9 Gastro-esophageal reflux disease without esophagitis; I11.0 Hypertensive heart disease with heart failure; I50.9 Heart failure, unspecified; J44.9 Chronic obstructive pulmonary disease, unspecified; Z87.891 Personal history of nicotine dependence; Z99.81 Dependence on supplemental oxygen; Z79.82 Long term (current) use of aspirin; Z79.899 Other long term (current) drug therapy; Z88.0 Allergy status to penicillin; Z88.8 Allergy status to other drugs, medicaments and biological substances
CPT/HCPCS: 30905; 99283; A9270

== ENCOUNTER 2018-03-02 16:11 | Emergency (ER) | payer OTHER, MEDICARE ==
[2018-03-02 16:27] VITALS: BP 153/61
[2018-03-02] MEDS ORDERED: Sodium Chloride 0.9% 10 ML Syringe FLUSH PRN (16:46)
--- NOTE | 2018-03-02 17:12 | CR ---
Chest: Portable view of the chest was obtained. Comparison: Prior chest x-ray of 03/10/17. Heart is enlarged. Upper mediastinum is within normal limits. Minimal right basilar atelectasis is seen. Lungs otherwise are clear. No acute pulmonary vascular congestion is seen. Bony structures are grossly intact. Impression: 1. Mild cardiomegaly. Other incidental findings. Nothing acute is seen. Diagnostic code #2
[2018-03-02] MEDS ORDERED: Albuterol/Ipratropium 3.0-0.5 MG/3 ML Neb Soln NEB ONE (18:15)
[2018-03-02] MEDS ORDERED: Doxycycline 100 MG Cap PO ONE (18:15)
--- NOTE | 2018-03-02 18:24 | EDM.PDOC ---
ED HPI GENERAL MEDICAL PROBLEM - General Chief Complaint: Respiratory Problem Stated Complaint: TEMP/COUGHING Time Seen by Provider: 03/02/18 16:26 Source of Information: Reports: Patient, Family, RN Notes Reviewed - History of Present Illness INITIAL COMMENTS - FREE TEXT/NARRATIVE: 82-year-old male comes in with onset of cough yesterday and then fever chills today. His states that he had some shaking chills this past morning and then again this afternoon. Cough has been primarily nonproductive. He does get somewhat short of breath when coughing. He does have history of COPD, does use oxygen on a regular basis. He has had some mild nasal and sinus congestion and also mild scratchy throat. No headache. No abdominal pain nausea or vomiting. Lower Back Pain Score (Numeric/FACES): 5 - Related Data Allergies Allergy/AdvReac Type Severity Reaction Status Date / Time gabapentin Allergy itchy eyes Verified 03/02/18 16:28 Penicillins Allergy Swelling Verified 03/02/18 16:28 Home Meds: Home Meds Albuterol Sulfate [Proair Hfa] 1 - 2 puff INH Q4H PRN 03/22/17 [History] Allopurinol [Zyloprim] 300 mg PO DAILY 03/22/17 [History] Aspirin [[place] Aspirin] 81 mg PO DAILY 03/22/17 [History] Atenolol 50 mg PO DAILY 03/22/17 [History] Brimonidine [Alphagan P 0.15% Ophth Soln] 1 drop EYEBOTH BID 03/22/17 [History] Cyclobenzaprine [Flexeril] 10 mg PO TID PRN 03/22/17 [History] Finasteride 5 mg PO DAILY 03/22/17 [History] Fluticasone/Salmeterol [Advair 250-50 Diskus] 2 puff INH BID 03/22/17 [History] Furosemide 80 mg PO BID 03/22/17 [History] Krill/Om-3/DHA/EPA/Phospho/Ast [Krill Oil 1,000 mg Softgel] 1 cap PO Q48H [History] Lactobacillus Combination No.4 [Probiotic] 1 cap PO DAILY 03/22/17 [History] Magnesium Oxide 250 mg PO BEDTIME 03/22/17 [History] Metolazone [Zaroxolyn] 2.5 mg PO Q48H 03/22/17 [History] Multivitamin [Multivitamins] 1 tab PO DAILY 03/22/17 [History] Omeprazole Magnesium [Prilosec Otc] 20 mg PO DAILY 03/22/17 [History] Potassium Chloride 60 meq PO TID 03/22/17 [History] Pramipexole Di-HCl [Mirapex] 0.25 mg PO BEDTIME 03/22/17 [History] Rosuvastatin [Crestor] 5 mg PO ASDIRECTED 03/22/17 [History] Sennosides [Senna] 8.6 mg PO DAILY 03/22/17 [History] Tamsulosin HCl 0.4 mg PO BID 03/22/17 [History] Tiotropium [Spiriva Handihaler] 1 puff INH DAILY 03/22/17 [History] Ubidecarenone [Coq-10] 100 mg PO DAILY 03/22/17 [History] Valsartan [Diovan] 80 mg PO BID 03/22/17 [History] predniSONE [Prednisone] 5 mg PO DAILY 03/22/17 [History] traMADol [Ultram] 50 mg PO Q6H PRN 03/22/17 [History] Calcium Carbonate/Vitamin D3 [Calcium 500 + Vit D 400] 1 each PO DAILY 06/11/17 [History] Dexamethasone 4 mg PO DAILY 06/11/17 [History] Gabapentin [Neurontin] 300 mg PO DAILY 06/11/17 [History] Lenalidomide [Revlimid] 25 mg PO DAILY 06/11/17 [History] Loratadine [Claritin] 10 mg PO ASDIRECTED 06/11/17 [History] Montelukast Sodium [Singulair] 5 mg PO DAILY 06/11/17 [History] Polyethylene Glycol 3350 [MiraLAX] 17 gm PO BID #1 cont 06/11/17 [Rx] Bacitracin/Polymyxin B [Polysporin Oint] 28.35 gm .XX DAILY #1 tube 02/04/18 [Rx ] Oseltamivir [Tamiflu] 75 mg PO BID #8 cap 03/02/18 [Rx] Past Medical History HEENT History: Reports: Impaired Vision Other HEENT History: Wears glasses, stop in tear duct Cardiovascular History: Reports: Heart Failure, High Cholesterol, Hypertension Respiratory History: Reports: COPD, Sleep Apnea Other Respiratory History: chronic o2 use at 2 L Gastrointestinal History: Reports: Colon Polyp, Diverticulosis, GERD, PUD, Other (See Below) Other Gastrointestinal History: dysphagia Genitourinary History: Reports: BPH, Renal Calculus 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 Is currently receiving chemotherapy for this. Dermatologic History: Reports: None - Past Surgical History Head Surgeries/Procedures: Reports: None HEENT Surgical History: Reports: Cataract Surgery, Polypectomy GI Surgical History: Reports: Cholecystectomy, Colonoscopy, EGD, Hernia Repair/ Other Neurological Surgical History: Reports: Lumbar Spine Musculoskeletal Surgical History: Reports: Other (See Below) Other Musculoskeletal Surgeries/Procedures:: four back surgeries Oncologic Surgical History: Reports: Bone Marrow Aspiration Social & Family History - Family History Family Medical History: Noncontributory - Tobacco Use Smoking Status *Q: Former Smoker Years of Tobacco use: 35 Packs/Tins Daily: 1.5 Used Tobacco, but Quit: Yes Month/Year Tobacco Last Used: 1988 Second Hand Smoke Exposure: No - Caffeine Use Caffeine Use: Reports: Coffee, Tea - Alcohol Use Days Per Week of Alcohol Use: 0 - Recreational Drug Use Recreational Drug Use: No Drug Use in Last 12 Months: No - Living Situation & Occupation Living situation: Reports: , with Spouse Occupation: Retired ED ROS GENERAL - Review of Systems Review Of Systems: See Below Constitutional: Reports: Fever (Today), Chills (Today) HEENT: Reports: Rhinitis (Mild), Throat Pain (Mild) Respiratory: Reports: Shortness of Breath (Mild chronically not much worse than usual), Cough. Denies: Pleuritic Chest Pain, Sputum Cardiovascular: Denies: Chest Pain Endocrine: Reports: Fatigue GI/Abdominal: Denies: Abdominal Pain, Nausea, Vomiting Musculoskeletal: Reports: Other (Some generalized achiness) Skin: Denies: Rash Neurological: Denies: Headache, Trouble Speaking ED EXAM, GENERAL - Physical Exam Exam: See Below General Appearance: Alert, No Apparent Distress Eye Exam: Bilateral Eye: PERRL Nose: Normal Inspection Throat/Mouth: Normal Inspection Head: Atraumatic Neck: Supple, Full Range of Motion. No: Lymphadenopathy (L), Lymphadenopathy (R ) Respiratory/Chest: Respiratory Distress (Mild tachypnea). No: Rhonchi, Wheezing Cardiovascular: Regular Rate, Rhythm GI/Abdominal: Soft, Non-Tender. No: Guarding Back Exam: No: CVA Tenderness (L), CVA Tenderness (R) Extremities: Normal Inspection, Pedal Edema. No: Leg Pain (Mild bilateral), Increased Warmth, Redness Neurological: Alert, Oriented, No Motor/Sensory Deficits Skin Exam: Warm, Dry, Normal Color Course - Vital Signs Last Recorded V/S: Last Vital Signs Temp 99.6 F 03/02/18 16:21 Pulse 75 03/02/18 16:21 Resp 28 H 03/02/18 16:21 BP 153/61 H 03/02/18 16:21 Pulse Ox 94 L 03/02/18 18:38 - Orders/Labs/Meds Orders: Active Orders 24 hr Category Date Time Status Oxygen Therapy [RC] ASDIRECTED Care 03/02/18 16:47 Active Peripheral IV Care [RC] . DIRECTED Care 03/02/18 16:48 Active RT Aerosol Therapy [RC] ASDIRECTED Care 03/02/18 18:15 Active CULTURE BLOOD [BC] Stat Lab 03/02/18 17:07 Received CULTURE BLOOD [BC] Stat Lab 03/02/18 17:17 Received Sodium Chloride 0.9% [Saline Flush] Med 03/02/18 16:46 Active 10 ml FLUSH ASDIRECTED PRN Peripheral IV Insertion Adult [OM.PC] Stat Oth 03/02/18 16:47 Ordered Medication Orders Sodium Chloride (Saline Flush) 10 ml FLUSH ASDIRECTED PRN PRN Reason: Keep Vein Open Last Admin: 03/02/18 17:11 Dose: 10 ml Labs: Laboratory Tests 03/02/18 03/02/18 03/02/18 Range/Units 17:07 17:07 17:07 WBC 2.44 L* (4.23-9.07) K/mm3 RBC 2.96 L (4.63-6.08) M/mm3 Hgb 9.8 L (13.7-17.5) gm/L Hct 30.5 L (40.1-51.0) % MCV 103.0 H (79.0-92.2) fl MCH 33.1 H (25.7-32.2) pg MCHC 32.1 L (32.2-35.5) g/dl RDW Std Deviation 57.5 H (35.1-43.9) fL Plt Count 69 L (163-337) K/mm3 MPV 9.5 (9.4-12.3) fl Neut % (Auto) 70.6 H (34.0-67.9) % Lymph % (Auto) 13.9 L (21.8-53.1) % Zavala % (Auto) 13.5 H (5.3-12.2) % Eos % (Auto) 1.2 (0.8-7.0) Baso % (Auto) 0.4 (0.1-1.2) % Neut # (Auto) 1.72 L (1.78-5.38) K/mm3 Lymph # (Auto) 0.34 L (1.32-3.57) K/mm3 Zavala # (Auto) 0.33 (0.30-0.82) K/mm3 Eos # (Auto) 0.03 L (0.04-0.54) K/mm3 Baso # (Auto) 0.01 (0.01-0.08) K/mm3 Manual Slide Review Abnormal smear Sodium 144 (136-145) mEq/L Potassium 4.4 (3.5-5.1) mEq/L Chloride 106 (98-107) mEq/L Carbon Dioxide 28 (21-32) mEq/L Anion Gap 14.4 (5-15) BUN 21 H (7-18) mg/dL Creatinine 1.9 H (0.7-1.3) mg/dL Est Cr Clr Drug Dosing 31.77 mL/min Estimated GFR (MDRD) 34 (>60) mL/min BUN/Creatinine Ratio 11.1 L (14-18) Glucose 109 (83-115) mg/dL Calcium 8.3 L (8.5-10.1) mg/dL Total Bilirubin 0.7 (0.2-1.0) mg/dL AST 15 (15-37) U/L ALT 17 (16-63) U/L Alkaline Phosphatase 67 (46-116) U/L C-Reactive Protein 9.6 H* (<1.0) mg/dL Total Protein 5.7 L (6.4-8.2) g/dl Albumin 2.7 L (3.4-5.0) g/dl Globulin 3.0 gm/dL Albumin/Globulin Ratio 0.9 L (1-2) Meds: Medications Generic Name Dose Route Start Last Admin Trade Name Freq PRN Reason Stop Dose Admin Sodium Chloride 10 ml 03/02/18 16:46 03/02/18 17:11 Saline Flush FLUSH 10 ml ASDIRECTED PRN Administration Keep Vein Open Discontinued Medications Generic Name Dose Route Start Last Admin Trade Name Freq PRN Reason Stop Dose Admin Albuterol/Ipratropium 3 ml 03/02/18 18:15 03/02/18 18:38 Duoneb 3.0-0.5 Mg/3 Ml NEB 03/02/18 18:16 3 ml ONETIME ONE Administration Doxycycline Hyclate 100 mg 03/02/18 18:15 03/02/18 18:22 Vibramycin PO 03/02/18 18:16 100 mg ONETIME ONE Administration Oseltamivir Phosphate 75 mg 03/02/18 19:00 Tamiflu PO 03/02/18 19:01 ONETIME ONE - Re-Assessments/Exams Free Text/Narrative Re-Assessment/Exam: 03/02/18 19:08 Chest x-ray was negative for pneumonia or other apparent acute abnormality. White blood count low, suspect low on basis of his chronic disease. Influenza screen did come back positive for influenza B. His states that he did get a flu shot last fall which now would be quite a long time ago. With his symptoms just having started yesterday we will start him on Tamiflu 75 mg twice a day. He does feel up to going home at this time. Sats of been good while here in the ED. Discharge instructions as documented Departure - Departure Time of Disposition: 18:18 Disposition: Home, Self-Care 01 Condition: Fair Clinical Impression: Influenza - Discharge Information Prescriptions: Oseltamivir [Tamiflu] 75 mg PO BID #8 cap Instructions: Acute Bronchitis, Adult, [id number] Referrals: Carlos Soto MD [Primary Care Provider] - Forms: ED Department Discharge Additional Instructions: Tamiflu 75 mg twice daily for 4 days, continue inhalers and other medications as previously prescribed. Drink plenty of water to maintain hydration. Tylenol every 6-8 hours if needed for any further fever. Follow-up with Dr. Vazquez early next week for recheck, call tomorrow morning for appointment, first available appointment next week. Return to ED if it is not working out at home, if symptoms worsening in any way. - My Orders Last 24 Hours: My Active Orders 03/02/18 16:46 Sodium Chloride 0.9% [Saline Flush] 10 ml FLUSH ASDIRECTED PRN 03/02/18 16:47 Oxygen Therapy [RC] ASDIRECTED Peripheral IV Insertion Adult [OM.PC] Stat 03/02/18 16:48 Peripheral IV Care [RC] . DIRECTED 03/02/18 17:07 CULTURE BLOOD [BC] Stat 03/02/18 17:17 CULTURE BLOOD [BC] Stat 03/02/18 18:15 RT Aerosol Therapy [RC] ASDIRECTED - Assessment/Plan Last 24 Hours: My Active Orders 03/02/18 16:46 Sodium Chloride 0.9% [Saline Flush] 10 ml FLUSH ASDIRECTED PRN 03/02/18 16:47 Oxygen Therapy [RC] ASDIRECTED Peripheral IV Insertion Adult [OM.PC] Stat 03/02/18 16:48 Peripheral IV Care [RC] . DIRECTED 03/02/18 17:07 CULTURE BLOOD [BC] Stat 03/02/18 17:17 CULTURE BLOOD [BC] Stat 03/02/18 18:15 RT Aerosol Therapy [RC] ASDIRECTED
[2018-03-02] MEDS ORDERED: Oseltamivir 75 MG Cap PO ONE (19:00)
== END 2018-03-02 19:10 | disposition home or self-care (01) ==
LOC: JD.ED 16:11
DX: J10.1 Influenza due to other identified influenza virus with other respiratory manifestations (principal); I11.0 Hypertensive heart disease with heart failure; I50.9 Heart failure, unspecified; J44.9 Chronic obstructive pulmonary disease, unspecified; E78.00 Pure hypercholesterolemia, unspecified; Z87.891 Personal history of nicotine dependence; Z79.899 Other long term (current) drug therapy; Z88.0 Allergy status to penicillin; Z88.8 Allergy status to other drugs, medicaments and biological substances; Z79.82 Long term (current) use of aspirin
CPT/HCPCS: 36415; 71045; 80053; 85025; 86140; 87040; 87804; 94640; 99284; A9270; J7050; 99283

== ENCOUNTER 2018-04-19 20:07 | Emergency (ER) | payer MEDICARE, OTHER ==
[2018-04-19 20:32] VITALS: BP 116/59
--- NOTE | 2018-04-19 20:53 | EDM.PDOC ---
ED HPI GENERAL MEDICAL PROBLEM - General Chief Complaint: Abdominal Pain Stated Complaint: SHARP PAIN LEFT SIDE Time Seen by Provider: 04/19/18 20:53 - History of Present Illness INITIAL COMMENTS - FREE TEXT/NARRATIVE: 82-year-old male presents emergency room with left-sided lower abdominal pain. This pain really has been getting worse through the course today the patient was seen at the [facility] in [place] he had a couple appointments there he took several stool softeners before he went there. He has not had any luck with this the pain is managed to get worse he has not had any associated nausea vomiting with this no diarrhea. He has no burning or frequency with urination. No fevers or chills. Patient has frequent problems with constipation Left Abdomen Pain Score (Numeric/FACES): 5 - Related Data Allergies Allergy/AdvReac Type Severity Reaction Status Date / Time gabapentin Allergy itchy eyes Verified 03/02/18 16:28 Penicillins Allergy Swelling Verified 03/02/18 16:28 Home Meds: Home Meds Albuterol Sulfate [Proair Hfa] 1 - 2 puff INH Q4H PRN 03/22/17 [History] Allopurinol [Zyloprim] 300 mg PO DAILY 03/22/17 [History] Aspirin [[place] Aspirin] 81 mg PO DAILY 03/22/17 [History] Atenolol 50 mg PO DAILY 03/22/17 [History] Brimonidine [Alphagan P 0.15% Ophth Soln] 1 drop EYEBOTH BID 03/22/17 [History] Cyclobenzaprine [Flexeril] 10 mg PO TID PRN 03/22/17 [History] Finasteride 5 mg PO DAILY 03/22/17 [History] Fluticasone/Salmeterol [Advair 250-50 Diskus] 2 puff INH BID 03/22/17 [History] Furosemide 80 mg PO BID 03/22/17 [History] Krill/Om-3/DHA/EPA/Phospho/Ast [Krill Oil 1,000 mg Softgel] 1 cap PO Q48H [History] Lactobacillus Combination No.4 [Probiotic] 1 cap PO DAILY 03/22/17 [History] Magnesium Oxide 250 mg PO BEDTIME 03/22/17 [History] Metolazone [Zaroxolyn] 2.5 mg PO Q48H 03/22/17 [History] Omeprazole Magnesium [Prilosec Otc] 20 mg PO DAILY 03/22/17 [History] Potassium Chloride 60 meq PO TID 03/22/17 [History] Rosuvastatin [Crestor] 5 mg PO ASDIRECTED 03/22/17 [History] Sennosides [Senna] 8.6 mg PO DAILY 03/22/17 [History] Tamsulosin HCl 0.4 mg PO BID 03/22/17 [History] Tiotropium [Spiriva Handihaler] 1 puff INH BID 03/22/17 [History] Ubidecarenone [Coq-10] 100 mg PO DAILY 03/22/17 [History] Valsartan [Diovan] 80 mg PO BID 03/22/17 [History] traMADol [Ultram] 50 mg PO Q6H PRN 03/22/17 [History] Calcium Carbonate/Vitamin D3 [Calcium 500 + Vit D 400] 2 each PO DAILY 06/11/17 [History] Dexamethasone 5.5 mg PO ASDIRECTED 06/11/17 [History] Lenalidomide [Revlimid] 25 mg PO DAILY 06/11/17 [History] Loratadine [Claritin] 10 mg PO ASDIRECTED 06/11/17 [History] Montelukast Sodium [Singulair] 5 mg PO DAILY 06/11/17 [History] Polyethylene Glycol 3350 [MiraLAX] 17 gm PO BID #1 cont 06/11/17 [Rx] Lactulose 20 gm PO QAM #1 liter 04/20/18 [Rx] Past Medical History HEENT History: Reports: Impaired Vision Other HEENT History: Wears glasses, stop in tear duct Cardiovascular History: Reports: Heart Failure, High Cholesterol, Hypertension Respiratory History: Reports: COPD, Sleep Apnea Other Respiratory History: chronic o2 use at 2 L Gastrointestinal History: Reports: Chronic Constipation, Colon Polyp, Diverticulosis, GERD, PUD, Other (See Below) Other Gastrointestinal History: dysphagia Genitourinary History: Reports: BPH, Renal Calculus 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 Is currently receiving chemotherapy for this. Dermatologic History: Reports: None - Past Surgical History Head Surgeries/Procedures: Reports: None HEENT Surgical History: Reports: Cataract Surgery, Polypectomy GI Surgical History: Reports: Cholecystectomy, Colonoscopy, EGD, Hernia Repair/ Other Neurological Surgical History: Reports: Lumbar Spine Musculoskeletal Surgical History: Reports: Other (See Below) Other Musculoskeletal Surgeries/Procedures:: four back surgeries Oncologic Surgical History: Reports: Bone Marrow Aspiration Social & Family History - Family History Family Medical History: Noncontributory - Tobacco Use Smoking Status *Q: Former Smoker Used Tobacco, but Quit: Yes Month/Year Tobacco Last Used: 1988 - Caffeine Use Caffeine Use: Reports: Coffee, Tea - Recreational Drug Use Recreational Drug Use: No - Living Situation & Occupation Living situation: Reports: , with Spouse Occupation: Retired ED ROS GENERAL - Review of Systems Review Of Systems: See Below Constitutional: Reports: No Symptoms HEENT: Reports: No Symptoms Respiratory: Reports: No Symptoms Cardiovascular: Reports: No Symptoms GI/Abdominal: Reports: Abdominal Pain, Constipation. Denies: Diarrhea, Nausea, Vomiting : Reports: No Symptoms Neurological: Reports: No Symptoms ED EXAM, GI/ABD - Physical Exam Exam: See Below Exam Limited By: No Limitations General Appearance: Alert, No Apparent Distress Head: Atraumatic, Normocephalic Neck: Normal Inspection, Supple, Non-Tender, Full Range of Motion Respiratory/Chest: No Respiratory Distress, Lungs Clear, Normal Breath Sounds Cardiovascular: Regular Rate, Rhythm, No Edema, No Murmur GI/Abdominal Exam: Normal Bowel Sounds, Soft, Other (He has some left lower quadrant discomfort no suprapubic discomfort no other palpable discomfort no rigidity no rebound or guarding noted). No: Distended, Guarding, Rigid, Rebound Back Exam: Normal Inspection. No: CVA Tenderness (L), CVA Tenderness (R) Course - Vital Signs Last Recorded V/S: Last Vital Signs Temp 37.5 C 04/19/18 20:29 Pulse 67 04/19/18 20:29 Resp 20 04/19/18 20:29 BP 116/59 L 04/19/18 20:29 Pulse Ox 93 L 04/19/18 20:29 - Orders/Labs/Meds Orders: Active Orders 24 hr Category Date Time Status Abdomen 2V AP Flat Upright [CR] Stat Exams 04/19/18 21:27 Taken Meds: Medications Discontinued Medications Generic Name Dose Route Start Last Admin Trade Name Mary PRN Reason Stop Dose Admin Magnesium Citrate 592 ml 04/20/18 00:19 Citrate Of Magnesia PO 04/20/18 00:20 ONETIME ONE - Re-Assessments/Exams Free Text/Narrative Re-Assessment/Exam: 04/20/18 00:14 X-ray report was reviewed which shows some nonspecific nondilated loops of bowel in the small bowel. No large moderate fecal material at the distal descending colon proximal sigmoid. Rectum is fairly clear. Discussed the findings with the patient and his offered mag citrate versus checking some labs and anticipating CT evaluation they elected to try mag citrate. They agree to return to emergency room in 12 hours if not better sooner if getting worse. Departure - Departure Time of Disposition: 00:17 Disposition: Home, Self-Care 01 Clinical Impression: Abdominal pain, Constipation by delayed colonic transit - Discharge Information Prescriptions: Lactulose 20 gm PO QAM #1 liter Referrals: Carlos Soto MD [Primary Care Provider] - Forms: ED Department Discharge Additional Instructions: Return to the emergency room with any questions problems worsening symptoms. Return to the emergency room in 12 hours if not better sooner if getting worse. Take the mag citrate one bottle when you get home. Repeat the second bottle early in the morning if you do not get the desired effect from the first bottle. Follow-up with your regular physician at the end of this week or first part of next week for a recheck. Use the lactulose as direct.ed - My Orders Last 24 Hours: My Active Orders 04/19/18 21:27 Abdomen 2V AP Flat Upright [CR] Stat - Assessment/Plan Last 24 Hours: My Active Orders 04/19/18 21:27 Abdomen 2V AP Flat Upright [CR] Stat
[2018-04-20] MEDS ORDERED: Magnesium Citrate Solution 296 ML Bottle PO ONE (00:19)
--- NOTE | 2018-04-20 09:21 | CR ---
Abdomen: Supine and upright views of the abdomen were obtained. Comparison: Prior abdominal x-ray of 06/11/17. Scoliosis and degenerative change noted within the spine. Several slightly prominent loops of small bowel gas are seen. Surgical clips are seen within the upper right abdomen. No free air is seen. Vascular calcification is noted. Impression: 1. Several slightly prominent loops of small bowel. Difficult to exclude developing small bowel obstruction although findings may also represent a focal small bowel ileus. 2. Other incidental findings. Diagnostic code #3
== END 2018-04-20 00:35 | disposition home or self-care (01) ==
LOC: JD.ED 20:07
DX: K59.01 Slow transit constipation (principal); I11.0 Hypertensive heart disease with heart failure; I50.9 Heart failure, unspecified; E78.00 Pure hypercholesterolemia, unspecified; J44.9 Chronic obstructive pulmonary disease, unspecified; D64.9 Anemia, unspecified; Z87.891 Personal history of nicotine dependence; Z87.442 Personal history of urinary calculi; Z88.0 Allergy status to penicillin; Z88.8 Allergy status to other drugs, medicaments and biological substances; Z79.899 Other long term (current) drug therapy; Z79.82 Long term (current) use of aspirin
CPT/HCPCS: 74019; 99284; A9270

== ENCOUNTER 2019-01-03 09:46 | Emergency (ER) | payer MEDICARE, OTHER ==
--- NOTE | 2019-01-03 10:06 | EDM.PDOC ---
ED HPI GENERAL MEDICAL PROBLEM - General Chief Complaint: ENT Problem Stated Complaint: NOSE BLEED Time Seen by Provider: 01/03/19 10:06 Source of Information: Reports: Patient History Limitations: Reports: No Limitations - History of Present Illness INITIAL COMMENTS - FREE TEXT/NARRATIVE: 83-year-old male presents to the ED with persistent nasal bleeding from the left side since 0630 hrs. this morning. He has a history of recurrent nosebleeds but this is the first one this year. He is on continuous oxygen by nasal prongs. He also use [place] gel spray at bedtime. Baby aspirin daily. No other anticoagulants. No nasal trauma recent surgery or hypertension. He states the nose bleeding persistently since 0630 hrs. and is been swallowing some blood as well as it coming out his right nares at times. He has not had a nosebleeds this year but he had 3 last year. does have multiple myeloma. Last hemoglobin done last week was 9.3. Onset: Today Onset Date: 01/03/19 Onset Time: 06:30 Duration: Hour(s): Location: Reports: Face Quality: Reports: Other Severity: Moderate (No pain) Improves with: Reports: Other (Nasal clamping as brought the bleeding under some degree of control) Worsens with: Reports: None Context: Reports: Other (Spontaneous occurrence of nose bleeding). 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.) - Related Data Allergies Allergy/AdvReac Type Severity Reaction Status Date / Time gabapentin Allergy itchy eyes Verified 01/03/19 10:01 Penicillins Allergy Swelling Verified 01/03/19 10:01 Home Meds: Home Meds Aspirin 81 mg PO DAILY 01/03/19 [History] Brimonidine/Dorzolamide/Pf [Brimonidine 0.15%-Dorzolam 2%] 1 drop EYEBOTH DAILY 01/03/19 [History] Calcium Carbonate/Vitamin D3 [Calcium 500-Vit D3 200 Tablet] 2 tab PO DAILY 04/16 [History] Cyclobenzaprine [Flexeril] 10 mg PO DAILY PRN 01/03/19 [History] Dexamethasone 10 mg PO ASDIRECTED 01/03/19 [History] Finasteride [Proscar] 5 mg PO DAILY 01/03/19 [History] Krill Oil/[place]-3/Dha/Epa [[place]-3 Krill Oil Softgel] 1 tab PO SUTUTHSA [History] Magnesium Amino Acid Chelate [Magnesium] 250 mg PO DAILY 01/03/19 [History] Montelukast [Singulair] 10 mg PO DAILY 01/03/19 [History] Omeprazole 20 mg PO DAILY 01/03/19 [History] Potassium Bicarb/Potassium Chl [Potassium Chloride] 60 meq PO BID 01/03/19 [ History] Potassium Chloride 80 meq PO DAILY 01/03/19 [History] Sennosides [Senexon] 200 mg PO DAILY 01/03/19 [History] Tamsulosin HCl [Flomax] 0.4 mg PO BID 01/03/19 [History] Ubidecarenone [COQ-10] 100 mg PO DAILY 01/03/19 [History] Vit A/Vit C/Vit E/Zinc/Copper [Preservision] 2 tab PO DAILY 01/03/19 [History] metOLazone [Metolazone] 2.5 mg PO DAILY 01/03/19 [History] traMADol HCl [Tramadol HCl] 50 mg PO DAILY PRN 01/03/19 [History] Past Medical History HEENT History: Reports: Impaired Vision Other HEENT History: Wears glasses, stop in tear duct Cardiovascular History: Reports: Heart Failure, High Cholesterol, Hypertension Respiratory History: Reports: COPD, Sleep Apnea Other Respiratory History: chronic o2 use at 2 L Gastrointestinal History: Reports: Chronic Constipation, Colon Polyp, Diverticulosis, GERD, PUD, Other (See Below) Other Gastrointestinal History: dysphagia Genitourinary History: Reports: BPH, Renal Calculus 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 Is currently receiving chemotherapy for this. Dermatologic History: Reports: None - Past Surgical History Head Surgeries/Procedures: Reports: None HEENT Surgical History: Reports: Cataract Surgery, Polypectomy GI Surgical History: Reports: Cholecystectomy, Colonoscopy, EGD, Hernia Repair/ Other Neurological Surgical History: Reports: Lumbar Spine Musculoskeletal Surgical History: Reports: Other (See Below) Other Musculoskeletal Surgeries/Procedures:: four back surgeries Oncologic Surgical History: Reports: Bone Marrow Aspiration Social & Family History - Family History Family Medical History: Noncontributory - Caffeine Use Caffeine Use: Reports: Coffee, Tea - Living Situation & Occupation Living situation: Reports: , with Spouse Occupation: Retired ED ROS ENT - Review of Systems Review Of Systems: See Below Constitutional: Reports: Malaise (Has multiple myeloma last hemoglobin is 9.3), Fatigue. Denies: Fever, Chills, Decreased Appetite HEENT: Reports: Nosebleed (Left side persistent since 0630 hrs. this morning) Respiratory: Reports: Shortness of Breath, Cough. Denies: Wheezing, Pleuritic Chest Pain (Chronic COPD and is on oxygen at all 2 L/m) Cardiovascular: Reports: Dyspnea on Exertion. Denies: Chest Pain (Occasional cough), Blood Pressure Problem, Claudication, Edema, Lightheadedness, Orthopnea Endocrine: Reports: Fatigue GI/Abdominal: Reports: Decreased Appetite : Reports: Frequency, Other (Benign prostatic hypertrophy. His schedule see urologist in [place] in 2 days time) Musculoskeletal: Reports: Back Pain, Joint Pain (Knees hips and neck at times) Skin: Reports: Bruising (Uses easily.) Neurological: Reports: No Symptoms Psychiatric: Reports: No Symptoms Hematologic/Lymphatic: Reports: No Symptoms Immunologic: Reports: No Symptoms ED EXAM, ENT - Physical Exam Exam: See Below Exam Limited By: No Limitations General Appearance: Alert, WD/WN, No Apparent Distress, Other (Has his nasal prongs in his mouth at this time) Eye Exam: Bilateral Eye: Normal Inspection Nose: Other (Has fairly active bleeding from the left side of his nose. Large clot present and a nasal polyp noted. On the left side there is pinpoint hemorrhage from the entire nasal septum. I did cauterize the anterior aspect of the septum but there is still significant active bleeding. The nose was packed with a 7.5 cm Rhino Rocket to bring the bleeding under control) Mouth/Throat: Other (There is clotted blood in the posterior oropharynx particular in the left side behind the soft palate. Posterior oropharynx is coated with dried blood is also blood in the right side of the nose but it appears to be mostly posterior and have leaked into that side from the left side ) Head: Atraumatic, Normocephalic Neck: Normal Inspection, Supple, Non-Tender, Full Range of Motion. No: Lymphadenopathy (L), Lymphadenopathy (R) Respiratory/Chest: Respiratory Distress (Mild tachypnea.), Decreased Breath Sounds, Wheezing (Sounds diminished the lower 25% of lung rey bilaterally. No expiratory wheeze.) ED ENT PROCEDURES - Epistaxis Procedure Indication: Epistaxis, Uncontrolled Recent anticoagulants/antiplatlets: Yes (He is on aspirin baby aspirin once daily) Uncontrolled HTN: No Recent septal/nasal surgery: No Site of bleeding: Left Nare, Posterior Clearing of clots: Patient Blew Nose Chemical cautery: Silver Nitrate Topical Anterior Packing: Inflatable Nasal Tampon Posterior packing: Long Nasal Tampon Course - Vital Signs Last Recorded V/S: Last Vital Signs Temp 36.3 C 01/03/19 10:00 Pulse 86 01/03/19 10:00 Resp 20 01/03/19 10:00 BP 130/71 01/03/19 10:00 Pulse Ox 94 L 01/03/19 10:00 - Radiology Interpretation Free Text/Narrative:: 83-year-old male presents to the ED with persistent spontaneous nosebleed from the left side of his nose. This started about 0630 hrs. this morning. Of note the patient is on baby aspirin daily and does use nasal prongs bilaterally at 2- 3 L/m at all times. He does use [place] gel at bedtime. Initial reveal very active bleeding from the left side of the nose and was impossible to ascertain exactly where was coming from. He does have a nasal polyp illness a large amount of clots in the posterior oropharynx. I did cauterize part of the anterior nasal septum with silver nitrate but the bleeding persisted. Therefore and 7.5 cm Rhino Rocket was placed in the left naris without any difficulty. Patient tolerated the procedure very well. - Re-Assessments/Exams Free Text/Narrative Re-Assessment/Exam: 01/03/19 10:50: No further bleeding has occurred from the left side of the nose. They're still clotted blood in the posterior oropharynx and I will have him gargle to get rid of these clots. He has some mild anterior nasal snuffles from the area of cauterization. Nasal pack is to remain in place until at noon. can remove the packing in doctors in [place] or unable to do so. I.e. he has a urology consultation on morning but they may not be amenable to removing his pack. Of course she will return to the ED if any further nose bleeding occurs. Departure - Departure Time of Disposition: 10:43 Disposition: Home, Self-Care 01 Condition: Fair Clinical Impression: Epistaxis not due to trauma - Discharge Information *PRESCRIPTION DRUG MONITORING PROGRAM REVIEWED*: Not Applicable *COPY OF PRESCRIPTION DRUG MONITORING REPORT IN PATIENT DALIA: Not Applicable Instructions: Nosebleed, [id number] Referrals: Carlos Soto MD [Primary Care Provider] - Forms: ED Department Discharge Additional Instructions: Evaluation in the emergency room today in regards to persistent left-sided nosebleeding since 0630 hrs. this morning. Bleeding started spontaneously without any trauma. The tissue was noted to be quite dry on examination with multiple areas of pinpoint bleeding. He did cauterize a bit of the anterior nasal septum but there was a lot of blood still in the posterior aspect of the nose. Decision made to pack the nose with a Rhino Rocket 7.5 cm. This was placed to put pressure on both posterior and anterior nose lining to stop the bleeding. The nose will cry or have the snuffles for about an hour's due to the cauterization process. Again is to remain in place for the next 48 hours. Be removed around noon hour on . Of course return to the ED if any further nasal bleeding occurs.
[2019-01-03 11:25] VITALS: BP 136/72
== END 2019-01-03 10:50 | disposition home or self-care (01) ==
LOC: JD.ED 09:46
DX: R04.0 Epistaxis (principal)
CPT/HCPCS: 30903; 30905; 99282; 99283-25